=== PATIENT | male | born 1970 | race Caucasian/White ===

== ENCOUNTER → 2021-07-03 | Outpatient (CLI) | payer OTHER ==
[~2021-07-03] MED LIST: ALDACTONE25 MG PO; AMITRIPTYLINE150 MG PO; ANORO ELLIPTA1 EACH INH; ATORVASTATIN CA40 MG PO; BACTRIM D.S. TAB1 EA PO; BREO ELLIPTA 11 EACH INH; CARDURA2 MG PO; CARDURA4 MG PO; ECOTRIN81 MG PO; FLOVENT DISKUS50 MCG INH; IBUPROFEN800 MG PO; ISENTRESS400 MG PO; NORCO 5-325 TA1 EACH PO; NORCO 7.5-3251 EACH PO; PREDNISONE5 MG PO; TOPROL XL25 MG PO; TRUVADA 200 MG1 EACH PO; VENTOLIN HFA 66.7 GM INH; VENTOLIN/PROVE0.5 ML INH; ZESTRIL2.5 MG PO
== END ==
LOC: KOH-I 15:58
DX: Z71.9 Counseling, unspecified (principal)
CPT/HCPCS: 73130